=== PATIENT | female | born 1970 | race Caucasian/White ===

== ENCOUNTER 2016-08-31 11:10 | Day surgery (SDC) | payer OTHER ==
[~2016-08-31 11:10] MED LIST: BUPIVACAINE/EPI 0.5% 30 ML SDV ONE; POVIDONE-IODINE 20 ML in SODIUM CL IRRIG SOLUTION 500 ML IRR ONE; ROPIVACAINE HCL 150 MG/30 ML INJ ONE; ROPIVACAINE HCL 20 MG/10 ML INJ EP ONE; fentaNYL 100 MCG/2 ML INJ ONE
[2016-08-31] MEDS ORDERED: PROPOFOL 200 MG/20 ML VIAL ONE (11:12)
[2016-08-31] MEDS ORDERED: CALCIUM CHLORIDE 1 GM/10 ML INJ ONE (11:34)
[2016-08-31] MEDS ORDERED: THROMBIN (RECOMBINANT) 5,000 UNIT VIAL TP ONE (11:34)
[2016-08-31] MEDS ORDERED: CHLORHEXIDINE GLUC HIBICLENS 118 ML BTL TP ONE (12:09)
[2016-08-31] MEDS ORDERED: CLINDAMYCIN 900 MG/DEXTROSE/50 ML BAG IV ONE (12:09)
[2016-08-31] MEDS ORDERED: MIDAZOLAM 2 MG/2 ML VIAL ONE (12:16)
[2016-08-31] MEDS ORDERED: ACETAMINOPHEN 500 MG TAB PO ONE (12:30)
[2016-08-31] MEDS ORDERED: CLINDAMYCIN 900 MG/DEXTROSE 50 ML IV ONE (12:30)
[2016-08-31] MEDS ORDERED: ALBUMIN 5% 250 ML BOTTLE IV ONE (12:42)
[2016-08-31] MEDS ORDERED: METOCLOPRAMIDE 10 MG/2 ML VIAL ONE (12:52)
[2016-08-31] MEDS ORDERED: DEXAMETHASONE 4 MG/ML VIAL ONE (12:52)
[2016-08-31] MEDS ORDERED: KETOROLAC 30 MG/1 ML SDV ONE (12:52)
[2016-08-31] MEDS ORDERED: ONDANSETRON 4 MG/2 ML VIAL ONE ×2 (12:52→14:34)
[2016-08-31] MEDS ORDERED: PHENYLEPHRINE HCL 100 MCG/ML SYR ONE (12:53)
[2016-08-31] MEDS ORDERED: DIAZEPAM 10 MG/2 ML SYR ONE (12:58)
[2016-08-31] MEDS ORDERED: PROMETHAZINE HCL 25 MG/ML INJ ONE (16:03)
--- NOTE | 2016-08-31 18:59 | GOP ---
DATE OF OPERATION: 08/31/2016 SURGEON: Landy Vargas MD ANESTHESIA: LMA plus scalene nerve block per surgeon's request. PREOPERATIVE DIAGNOSIS: Right shoulder impingement syndrome with labral tear and partial thickness rotator cuff tear. POSTOPERATIVE DIAGNOSIS: Right shoulder impingement syndrome with labral tear and partial thickness rotator cuff tear. PROCEDURE PERFORMED: Right shoulder arthroscopy with debridement of labrum, rotator cuff, subacromi al bursa with subacromial decompression, and distal clavicle excision. FINDINGS: INDICATIONS: This is a 46-year-old female with a several month history of right shoulder pain worse rony with use and with time. MRI exams revealed significant anterior acromial curve and a hook mary g with a spur off the inferior portion of the clavicle, along with a tear of the posterior superior and the anterior portion of the labrum. She wishes to have surgery in order to resolve the problem. DESCRIPTION OF PROCEDURE: Patient was brought to the operating room. The right side had been ident ified as the correct side by the patient, nurse, and physician. Once in the operating room, she was given a scalene block on the right side. I then placed her under anesthesia using an LMA. Once as leep, she was placed in a beach chair position with the right upper extremity sterilely prepped and draped in the usual fashion using GSI solution and was prepped and draped. An incision was made off the posterolateral corner of the acromion with the camera introduced without difficulty. Inspectio n of the joint revealed a posterior superior labral tear, along with a tear along the anterior borde r. She did have a natural Kareen complex. Along with fraying associated with the subscapularis at i ts superior border. Therefore, using an in-to-out technique, an anterior portal was made in the sup erolateral coracoid process with 6 x 75 mm threaded cannula placed through the anterior portal. A 3 .5 mm smooth shaver was used to debride both the tearing of the subscapularis, along with the fourdrinier operator osuperior and anterior portion of the labral tear itself. Once completed, all instruments were akiko simone from the shoulder joint and using the same portal sites, were reintroduced in the subacromial sp deyanira. A 3rd incision was made 3 cm lateral to the acromial process in line with the posterior cortex of the clavicle. With the camera switched to the lateral portal, and alternatingly using arthrosco pic Bovie tip and a shaver was used to remove the abundant amount of soft tissue within the subacrom ial space to include the bursal tissue. Once completed, she was noted to have a very large anterior acromial curve, and this was debrided using combination of bur brought through the posterior portal and used until achieving a flat ceiling to the acromion, at which point it was noted that she had a very large spur of the inferior portion of the distal clavicle, which was also debrided until achie ving a flat surface using a combination of shaver and bur. Once finished, all instruments were akiko simone from the subacromial space with 30 cc of Marcaine infused in the subacromial space and plasma ge l placed within the subacromial space. After the 3 portal sites had been closed using a 3-0 nylon s uture in a [id number]-[id number] type stitch and dressed with Xeroform, 4 x 4, and Tegaderm. She was comp letely undraped in the operating room, had a sling placed on the right upper extremity. She was wok en up, extubated, transferred onto a stretcher, and sent to recovery room in good condition. /[id number]/MODL
== END 2016-08-31 16:20 | disposition home or self-care (01) ==
LOC: FSGY 11:10
PROVIDERS: ATTEND Orthopaedic Surgery
PROC: 0RBJ4ZZ Excision of Right Shoulder Joint, Percutaneous Endoscopic Approach (ICD-10-PCS; principal; 2016-08-31 13:00)
PROC: 0PB94ZZ Excision of Right Clavicle, Percutaneous Endoscopic Approach (ICD-10-PCS; 2016-08-31 13:00)
PROC: 0MB14ZZ Excision of Right Shoulder Bursa and Ligament, Percutaneous Endoscopic Approach (ICD-10-PCS; 2016-08-31 13:00)
DX: M75.41 Impingement syndrome of right shoulder (principal); S43.431D Superior glenoid labrum lesion of right shoulder, subsequent encounter; M75.111 Incomplete rotator cuff tear or rupture of right shoulder, not specified as traumatic; M25.711 Osteophyte, right shoulder; G24.3 Spasmodic torticollis; Z88.0 Allergy status to penicillin
CPT/HCPCS: J0171; J1100; J1885; J2250; J2370; J2405; J2550; J2704; J2765; J2795; J3010; P9041

== ENCOUNTER 2017-01-03 05:59 | Day surgery (SDC) | payer OTHER ==
--- NOTE | 2016-12-31 19:33 | GHP ---
[f rep st] PREOP HISTORY AND PHYSICAL DATE OF ADMISSION: 01/03/2017 CURRENT COMPLAINT: Right shoulder stiffness. HISTORY OF PRESENT ILLNESS: The patient is a 46-year-old female, previously had undergone a right s houlder arthroscopy, has currently developed adhesive capsulitis and decreasing range of motion. Sh faheem wishes to have surgery in order to resolve the problem. ALLERGIES: Current allergies include penicillin. CURRENT MEDICATIONS: , Celebrex, diazepam, escitalopram, gabapentin, tizanidine, topirama te, tramadol, and zolpidem. PAST SURGICAL HISTORY: Prior surgeries include shoulder arthroscopy other x2 and GI surgery x1. PAST MEDICAL HISTORY: Migraines and osteopenia. PHYSICAL EXAMINATION: MUSCULOSKELETAL: Patient has 70 degrees of forward flexion, abduction to 30 degrees, and external rotation to 30 degrees with internal rotation to the hip. HEENT: Pupils are equal, round, and reactive to light. CHEST: Clear to auscultation. ABDOMEN: Soft and nontender. ASSESSMENT AND PLAN: Patient is status post right shoulder adhesive capsulitis. She is to be broug ht to the operating room for manipulation under anesthesia. /[id number]/MODL
[2017-01-03] MEDS ORDERED: LR 1,000 ML IV ONE (06:31)
[2017-01-03] MEDS ORDERED: LIDOCAINE 1% 2 ML INJ ID PRN (06:31)
--- NOTE | 2017-01-03 06:51 | PDANEPAE ---
ANE History of Present Illness 46 yo F w frozen shoulder here for shoulder manipulation ANE Past Medical History - Cardiovascular History Hx Hypertension: No Hx Arrhythmias: No Hx Chest Pain: No Hx Coronary Artery / Peripheral Vascular Disease: No Hx CHF / Valvular Disease: No Hx Palpitations: No Cardiovascular History Comment: bp can run very low - Pulmonary History Hx COPD: No Hx Asthma/Reactive Airway Disease: No Hx Recent Upper Respiratory Infection: No Hx Oxygen in Use at Home: No Hx Sleep Apnea: No Sleep Apnea Screening Result - Last Documented: Negative - Neurologic History Hx Cerebrovascular Accident: No Hx Seizures: No Hx Dementia: No Neurologic History Comment: cervical dystonia causing migraines - Endocrine History Hx Diabetes: No - Renal History Hx Renal Disorders: No - Liver History Hx Hepatic Disorders: No - Neurological & Psychiatric Hx Hx Neurological and Psychiatric Disorders: No - Cancer History Hx Cancer: No - Congenital Disorder History Hx Congenital Disorders: No - GI History Hx Gastrointestinal Disorders: No - Other Health History Other Health History: skin bx's recently - Chronic Pain History Chronic Pain: Yes (neck and migraines) - Surgical History Prior Surgeries: 08/31/[address] right [address]opy with Dr. Vargas. partial hysterectomy 2008. left bunionectomy 2008. abd surgery 1990- removed enlarged sweat gland ANE Review of Systems - Exercise capacity METS (RN): 4 METS ANE Patient History - Allergies Allergies/Adverse Reactions: adhesive tape Allergy (Verified 12/28/16 16:16) Rash Penicillins Allergy (Verified 12/28/16 16:16) Anaphylaxis - Home Medications Home medications: home medication list seen and reviewed Home Medications: Cambia 08/10/16 [Last Taken 12/02/16] DIAZEPAM 08/10/16 [Last Taken 12/27/16] Escitalopram Oxalate 08/10/16 [Last Taken 01/02/17] GABAPENTIN 08/10/16 [Last Taken 01/30/16] Hydrocodone Bit/Acetaminophen 08/10/16 [Last Taken Unknown] SUMATRIPTAN SUCCINATE 08/10/16 [Last Taken 12/27/16] Tizanidine HCl 08/10/16 [Last Taken 01/01/17] Topiramate 08/10/16 [Last Taken 01/01/17] Xeomin 08/10/16 [Last Taken 11/10/16 05:00] Zembrace Symtouch 08/10/16 [Last Taken Unknown] traMADol 08/10/16 [Last Taken 12/31/16] MAGNESIUM 12/28/16 [Last Taken 12/28/16] - NPO status NPO Status: no food or drink >8 hours - Anes Hx Anes Hx: post operative nausea and vomiting - Smoking Hx Smoking Status: Never smoked - Alcohol Use Alcohol Use: Occasionally - Family Anes Hx Family Anes Hx: none Family Hx Anesthesia Complications: mother- nausea ANE Labs/Vital Signs - Vital Signs Blood Pressure: 103/66 Heart Rate: 72 Respiratory Rate: 13 O2 Sat (%): 100 Height: 167.64 cm Weight: 54.431 kg
[2017-01-03] MEDS ORDERED: MIDAZOLAM 2 MG/2 ML VIAL IVP ONE (06:52)
[2017-01-03] MEDS ORDERED: PROPOFOL 200 MG/20 ML VIAL ONE ×2 (07:01)
--- NOTE | 2017-01-03 07:19 | PDHPUP ---
History & Physical Update H&P update statement: This history and physical update is based on an assessment of the patient which was completed after admission or registration (within 24 hours), but prior to the surgery/procedure.
[2017-01-03] MEDS ORDERED: NALOXONE HCL 0.4 MG/ML INJ IVP PRN ×2 (07:57→07:58)
[2017-01-03] MEDS ORDERED: ONDANSETRON 4 MG/2 ML VIAL IVP PRN (07:58)
[2017-01-03] MEDS ORDERED: ACETAMINOPHEN 500 MG TAB PO PRN (07:58)
[2017-01-03] MEDS ORDERED: HYDROCODONE/APAP 5/325 TAB PO PRN (07:59)
[2017-01-03] MEDS ORDERED: KETOROLAC 15 MG/1 ML SDV IVP ONE (07:59)
[2017-01-03] MEDS ORDERED: ACETAMINOPHEN 325 MG TAB PO PRN (07:59)
--- NOTE | 2017-01-03 07:59 | POSTOPPROG ---
Post Op Note Date of Operation: 01/03/17 Surgeon: Landy Vargas Anesthesiologist: debbie Anesthesia: IV Sedation Pre-op Diagnosis: r shoulder fibrosis Procedure: r shoulder davy Inf/Abcess present in the surg proc area at time of surgery?: No EBL: none
[2017-01-03 08:28] VITALS: RESP 16
[2017-01-03] MEDS ORDERED: KETOROLAC 15 MG/1 ML SDV ONE (08:42)
--- NOTE | 2017-01-03 08:42 | POSTANESTH ---
Post Anesthetic Evaluation Cardiovascular Status: Normal, Stable, Similar to Pre-Op Cond Respiratory Status: Normal, Stable, Similar to Pre-op Cond. Level of Consciousness/Mental Status: Can Participate in Eval Pain Control: Adequate, Prn Tx Ordered Nausea/Vomiting Control: Adequate, Prn Tx Ordered Complications Possibly Related to Anesthesia: None Noted
--- NOTE | 2017-01-03 08:49 | GOP ---
[f rep st] OPERATIVE REPORT DATE OF OPERATION: 01/03/2017 SURGEON: Landy Vargas MD ANESTHESIA: By mask with scalene block per surgeon's request. PREOPERATIVE DIAGNOSIS: Right shoulder fibrosis. POSTOPERATIVE DIAGNOSIS: Right shoulder fibrosis. PROCEDURE PERFORMED: Right shoulder manipulation under anesthesia. FINDINGS: INDICATIONS: This is a 46-year-old female, who had previously undergone right shoulder surgery who has developed stiffness into the shoulder despite multiple physical therapy appointments. She would like a manipulation in order to resolve the problem. DESCRIPTION OF PROCEDURE: Patient brought to the operating room. After the right side had been kianna ntified as correct side by the patient, nurse and physician. Once in the operating room, she was gi martha a scalene block on the right side and then given mask anesthesia for sedation. Once comfortable , she was able to be moved easily gaining 160 degrees forward flexion, 90 degrees of external rotati on, both in an abducted and non abducted pattern. She was able to be internally rotated in the abdu cted position to 80 degrees. There was a palpable adhesion breakage noted while doing so. Pictures were taken in order to show the maximum areas of range of motion and sent to the patient's cell leigh ann ne so that the AP showed Physical Therapy. Once completed, she was woken up, transferred onto a str etcher, and sent to recovery room in good condition. /[id number]/MODL
[2017-01-03 09:34] VITALS: PULSE 80; TEMP 98.1
[2017-01-03 09:52] VITALS: BP 103/76; O2SAT 99
== END 2017-01-03 09:50 | disposition home or self-care (01) ==
LOC: FSGY 05:59
PROVIDERS: ATTEND Orthopaedic Surgery
PROC: 0RNJXZZ Release Right Shoulder Joint, External Approach (ICD-10-PCS; principal; 2017-01-03 07:15)
DX: M24.611 Ankylosis, right shoulder (principal); M85.80 Other specified disorders of bone density and structure, unspecified site
CPT/HCPCS: J1885; J2250; J2704

== ENCOUNTER → 2017-05-21 | Outpatient (CLI) | payer OTHER | LOC: FIMAGING 14:18 | PROVIDERS: ATTEND Internal Medicine | DX: Z12.31 Encounter for screening mammogram for malignant neoplasm of breast (principal); Z80.3 Family history of malignant neoplasm of breast | CPT/HCPCS: G0202 ==

== ENCOUNTER → 2018-08-25 | Outpatient (CLI) | payer OTHER | LOC: BRMIMAGING 13:18 | PROVIDERS: ATTEND Internal Medicine | DX: M85.88 Other specified disorders of bone density and structure, other site (principal); Z12.31 Encounter for screening mammogram for malignant neoplasm of breast; Z80.3 Family history of malignant neoplasm of breast ==